=== PATIENT | female | born 1955 | race African-American/Black ===

== ENCOUNTER 2017-04-03 20:49 | Emergency (ER) | payer OTHER ==
[~2017-04-03] VITALS: Wt 71.0 kg
--- NOTE | 2017-04-03 21:10 | ERA ---
ER Documentation Chief Complaint Date/Time DATE: 04/03/17 TIME: 21:10 Chief Complaint CWP AND RIB PAIN FOR THE PAST FEW DAYS WITH COUGH AND CONGESTION, MILD SOB HPI The patient is a 61-year-old female, presenting to the ER because of intermittent, productive cough for the last 5 days. She denies fever, chills, neck pain, dyspnea. She complains of chest wall pain with coughing. She denies abdominal pain, vomiting, dysuria, diarrhea. She does not smoke, drinks socially Past medical history: Hypertension Past surgical history: None ROS All systems reviewed and are negative except as per history of present illness. Medications Home Meds Active Scripts Guaifenesin-Codeine Phosphate* (Robitussin* AC) 5 Ml Syrup, 10 ML PO Q6H Y for COUGH, #120 ML Prov:VENTURA ORTEGA MD 04/04/17 Albuterol Sulfate* (Ventolin HFA*) 18 Gm Hfa.aer.ad, 2 PUFF INHALATION Q4H, #1 INHALER Prov:VENTURA ORTEGA MD 04/04/17 Azithromycin* (Zithromax*) 250 Mg Tablet, 250 MG PO .ZPACK DIRECTED, #6 TAB TAKE 500 MG (2 TABS) THE FIRST DAY THEN 250 MG (1 TAB) DAYS 2-5 Prov:VENTURA ORTEGA MD 04/04/17 Allergies Allergies: Coded Allergies: No Known Allergy (Unverified , 04/03/17) Physical Exam Vitals Vital Signs Date Time Temp Pulse Resp B/P Pulse Ox O2 Delivery O2 Flow Rate FiO2 04/04/17 00:00 81 18 114/82 97 Room Air 04/03/17 23:00 84 13 112/66 Room Air 04/03/17 22:00 82 17 104/79 97 Room Air 04/03/17 21:40 87 19 97 21 04/03/17 20:58 98.5 91 20 149/79 99 Physical Exam Const: No acute distress. Head: Atraumatic. Eyes: Normal Conjunctiva. ENT: Normal External Ears, Nose and Mouth. Neck: Full range of motion. No meningismus. Resp: Minimal bilateral expiratory wheezes Cardio: Regular rate and rhythm, no murmurs. Abd: Soft, non distended, normal bowel sounds, non tender. Skin: No petechiae or rashes. Back: No midline or flank tenderness. Ext: No cyanosis, or edema. Neur: Awake and alert. No focal deficit Psych: Normal Mood and Affect. Result Diagram: 04/03/17212204/03/172122 Results 24 hrs Laboratory Tests Test 04/03/17 21:23 White Blood Count 8.010^3/ul Red Blood Count 4.7710^6/ul Hemoglobin 14.4g/dl Hematocrit 44.1% Mean Corpuscular Volume 92.5fl Mean Corpuscular Hemoglobin 30.2pg Mean Corpuscular Hemoglobin Concent 32.7g/dl Red Cell Distribution Width 13.4% Platelet Count 88924^3/UL Mean Platelet Volume 11.4fl Neutrophils % 57.7% Lymphocytes % 28.2% Monocytes % 7.9% Eosinophils % 5.7% Basophils % 0.4% Nucleated Red Blood Cells % 0.0/100WBC Neutrophils # 4.610^3/ul Lymphocytes # 2.310^3/ul Monocytes # 0.610^3/ul Eosinophils # 0.510^3/ul Basophils # 0.010^3/ul Nucleated Red Blood Cells # 0.010^3/ul Prothrombin Time 11.7Sec Prothrombin Time Ratio 0.9 INR International Normalized Ratio 0.86 Activated Partial Thromboplast Time 26.9Sec D-Dimer 461.05ng/ml D-Dimer Comment Sodium Level 144mmol/L Potassium Level 3.9mmol/L Chloride Level 112mmol/L Carbon Dioxide Level 26mmol/L Anion Gap 10 Blood Urea Nitrogen 22mg/dl Creatinine 0.93mg/dl Glucose Level 123mg/dl Calcium Level 9.7mg/dl Total Bilirubin 0.1mg/dl Direct Bilirubin 0.00mg/dl Indirect Bilirubin 0.1mg/dl Aspartate Amino Transf (AST/SGOT) 45IU/L Alanine Aminotransferase (ALT/SGPT) 61IU/L Alkaline Phosphatase 107IU/L Troponin I < 0.012ng/ml Total Protein 8.0g/dl Albumin 4.5g/dl Globulin 3.50g/dl Albumin/Globulin Ratio 1.28 Current Medications Medications (Trade) Dose Ordered Sig/Rosalina Route PRN Reason Start Time Stop Time Status Last Admin Dose Admin Ipratropium [place] (Atrovent 0.02% (Neb)) 0.5 mg ONCE STAT INH 04/03/17 21:19 04/03/17 21:44 DC 04/03/17 21:50 Levalbuterol (Xopenex Neb) 1.25 mg ONCE ONCE HHN 04/03/17 21:30 04/03/17 21:44 DC 04/03/17 21:50 Procedures/MDM [place] [id number] Radiology Main Line: [phone] DIAGNOSTIC IMAGING REPORT Patient: BEST CHAPPELL : 1955 Age: 61 Sex: F MR #: [id number] DOS: 04/03/172118 Ordering MD: VENTURA ORTEGA MD Location: E/R Room/Bed: PROCEDURE: XR Chest. CLINICAL INDICATION: Chest pain TECHNIQUE: Anterior chest x-ray. COMPARISON: None. FINDINGS: Rounded densities overlying the lower lung zones likely represent breast implants. The lungs are otherwise clear. No pleural effusion identified. There is no evidence of pneumothorax. The cardiomediastinal silhouette is unremarkable. The soft tissues are normal. Osseous structures are unremarkable. IMPRESSION: 1. No acute disease is seen in the chest. RPTAT: HLDM .Graham Bailey MD, MD Date Time Electronically viewed and signed by .Graham Bailey MD, MD on 04/03/2017 21: 56 .M/ CC: VENTURA ORTEGA MD EKG: Read by emergency physician Rate/Rhythm: Normal Sinus Rhythm 92 beats/min QRS, ST, T-waves: No ST elevation, no T inversion, nonspecific ST abnormality Impression: Abnormal EKG MEDICAL MAKING DECISION: The patient is a 61-year-old female, presenting to the ER because of acute bronchitis. She was treated with Xopenex 1.25 mg and Atrovent 0.5 mg with good response. The differential diagnoses considered include but are not limited to asthma, COPD, pneumonia, pulmonary embolus, pleural effusion, congestive heart failure. Departure Diagnosis: Primary Impression: Acute bronchitis Condition: Good Comments She was discharged with Zithromax, Robitussin AC, albuterol I I discussed the findings with the patient. I advised the patient to follow-up with the primary physician in about 1-2 days, sooner if needed and return if any concern. VENTURA ORTEGA MD April 03, 2017 21:10
[2017-04-03] MEDS ORDERED: IPRATROPIUM (NEB) 0.5 MG/2.5 ML AMP INH STA (21:19)
[2017-04-03] MEDS ORDERED: LEVALBUTEROL (NEB) 1.25 MG/0.5 ML AMP HHN ONE (21:30)
[2017-04-03 21:40] LABS: ADD SCAN DIFF NO
[2017-04-03 21:43] LABS: BASOPHILS % 0.4 % (0.0-2.0); EOSINOPHILS # 0.5 10^3/ul (0.0-0.5); EOSINOPHILS % 5.7 % (0.0-7.0); HEMATOCRIT 44.1 % (37.0-47.0); HEMOGLOBIN 14.4 g/dl (12.0-16.0); LYMPHOCYTES # 2.3 10^3/ul (0.8-2.9); LYMPHOCYTES % 28.2 % (15.0-51.0); MEAN CORPUSCULAR HEMOGLOBIN 30.2 pg (29.0-33.0); MEAN CORPUSCULAR HGB CONC 32.7 g/dl (32.0-37.0); MEAN CORPUSCULAR VOLUME 92.5 fl (82.0-101.0); MEAN PLATELET VOLUME 11.4 fl (7.4-10.4); MONOCYTE # 0.6 10^3/ul (0.3-0.9); MONOCYTES % 7.9 % (0.0-11.0); NEUTROPHIL # 4.6 10^3/ul (1.6-7.5); NEUTROPHILS % 57.7 % (39.0-77.0); PLATELET COUNT 257 10^3/UL (140-415); RED BLOOD COUNT 4.77 10^6/ul (4.20-5.40); RED CELL DISTRIBUTION WIDTH 13.4 % (11.5-14.5)
--- NOTE | 2017-04-03 21:57 | RADRPT ---
PROCEDURE: XR Chest. CLINICAL INDICATION: Chest pain TECHNIQUE: Anterior chest x-ray. COMPARISON: None. FINDINGS: Rounded densities overlying the lower lung zones likely represent breast implants. The lungs are otherwise clear. No pleural effusion identified. There is no evidence of pneumothorax. The cardiomediastinal silhouette is unremarkable. The soft tissues are normal. Osseous structures are unremarkable. IMPRESSION: 1. No acute disease is seen in the chest. RPTAT: HLDM .Graham Bailey MD, MD Date Time Electronically viewed and signed by .Graham Bailey MD, on 04/03/2017 21:56 .M/
[2017-04-03 22:09] LABS: ALBUMIN 4.5 g/dl (3.3-4.9); CHLORIDE 112 mmol/L (97-110); POTASSIUM 3.9 mmol/L (3.5-5.1); SODIUM 144 mmol/L (135-144)
[2017-04-03 22:11] LABS: BILIRUBIN,INDIRECT 0.1 mg/dl (0-1.1); BILIRUBIN,TOTAL 0.1 mg/dl (0.2-1.3); CREATININE 0.93 mg/dl (0.44-1.00); INR 0.86; PROTIME 11.7 Sec (12.2-14.2); PT RATIO 0.9
[2017-04-03 22:12] LABS: ALANINE AMINOTRANSFERASE 61 IU/L (13-69); ALBUMIN/GLOBULIN RATIO 1.28; ALKALINE PHOSPHATASE 107 IU/L (42-121); ANION GAP 10 (8-16); ASPARTATE AMINO TRANSFERASE 45 IU/L (15-46); BLOOD UREA NITROGEN 22 mg/dl (7-20); CARBON DIOXIDE 26 mmol/L (21-31); GLUCOSE 123 mg/dl (70-220); PARTIAL THROMBOPLASTIN TIME 26.9 Sec (25.0-35.0)
[2017-04-03 22:13] LABS: CALCIUM 9.7 mg/dl (8.4-10.2)
[2017-04-03 22:15] LABS: D-DIMER 461.05 ng/ml (<460)
[2017-04-03 22:25] LABS: TROPONIN-I < 0.012 ng/ml (0.00-0.12)
[2017-04-04] VITALS: BP 114/82; PULSE 81; RESP 18
[2017-04-04] MEDS ORDERED: AZIT250T94 PO (00:10)
[2017-04-04] MEDS ORDERED: ALBU18HF INHALATION (00:11)
[2017-04-04] MEDS ORDERED: UDROBAC PO (00:11)
== END 2017-04-04 00:33 | disposition home or self-care (01) ==
LOC: E/R 20:49
DX: J02.9 Acute pharyngitis, unspecified (principal); I10 Essential (primary) hypertension; R05 Cough
CPT/HCPCS: 36415; 71010; 80053; 84484; 85025; 85378; 85610; 85730; 94664; Z7502; Z7610; 93005

== ENCOUNTER 2019-07-01 20:21 | Emergency (ER) | payer OTHER ==
[~2019-07-01] VITALS: Ht 165.1 cm; Wt 75.0 kg
[~2019-07-01 20:21] MED LIST: ALBU18HF INHALATION; AZIT250T PO; CODE5LIQ2 PO; IBUP800T48 PO
[2019-07-01 20:23] VITALS: Ht 165.1 cm; Wt 75.0 kg
[2019-07-01] MEDS ORDERED: IBUPROFEN 800 MG TAB PO ONE (20:30)
[2019-07-01 21:58] VITALS: BP 120/65; PULSE 81; RESP 19
== END 2019-07-01 22:01 | disposition home or self-care (01) ==
LOC: E/R 20:21
DX: S13.4XXA Sprain of ligaments of cervical spine, initial encounter (principal); S40.021A Contusion of right upper arm, initial encounter; I10 Essential (primary) hypertension; V49.49XA Driver injured in collision with other motor vehicles in traffic accident, initial encounter
CPT/HCPCS: 73060; Z7502; Z7610